=== PATIENT | male | born 1990 | race Caucasian/White ===

== ENCOUNTER 2018-03-19 15:27 | Emergency (ER) | payer OTHER ==
--- NOTE | 2018-03-19 15:56 | EDPHY ---
H & P Smoking Status: Former smoker Time Seen by Provider: 03/19/18 15:45 HPI/ROS: CHIEF COMPLAINT: Dog bite HISTORY OF PRESENT ILLNESS: 19-year-old male arrives via private vehicle complaining of multiple dog bites. States that he was [place] of the [facility] wound unknown dog ran up to him started biting him and his friend. Sustained puncture wounds to his left forearm, left thigh, right lateral calf. This was not reported to law enforcement. He self transported. His tetanus is out-of-date. He does not know the shirt cleaner of the dog, he is not know whether the dog had tags on or not, does not remember that address he was at. PHYSICAL EXAM (Prior to examination, patient consented to physical exam, hands were washed and my usual and customary physical exam procedures followed) 1) GENERAL: Well-developed, well-nourished, alert and oriented. Appears to be in no acute distress. 2) HEAD: Normocephalic 3) HEENT: sclera anicteric 4) LUNGS: Breathing comfortably. 5) MUSCULOSKELETAL: Left forearm: 3 puncture wounds to the left forearm, 2 on the dorsal aspect along the volar aspect. Neurovascular intact distally with no signs of infection. Soft compartments. No underlying osseous discomfort. Left thigh: Puncture wound x1 to the anterior her proximal aspect of the thigh with no involvement of the genitalia. Soft compartments. Neurovascularly intact distally with no signs of infection. DP PT pulses present and brisk distally. Right lateral calf puncture wound x1 with soft compartments neurovascularly intact distally with no signs of infection. DP PT pulses present and brisk distally. (Chriss Ybarra Nicole) Constitutional: Initial Vital Signs Temperature (C) 37.3 C 03/19/18 15:41 Heart Rate 102 H 03/19/18 15:41 Respiratory Rate 18 03/19/18 15:41 Blood Pressure 142/85 H 03/19/18 15:41 O2 Sat (%) 93 03/19/18 15:41 O2 Delivery Mode Room Air Allergies/Adverse Reactions: iodine Allergy (Mild, Verified 03/19/18 15:29) Rash Home Medications: Medication Instructions Recorded Amoxicillin/Clavulanate Pot 875 mg PO BID #14 tab 03/19/18 [Augmentin 875 mg tab] Wellbutrin Sr 03/19/18 MDM/Departure - MDM Medications Given: Discontinued Medications Amoxicillin/Clavulanate Potassium (Augmentin 875mg) 875 mg PO EDNOW ONE PRN Reason: Protocol Stop: 03/19/18 16:25 Last Admin: 03/19/18 16:35 Dose: 875 mg Diphtheria/Tetanus/Acell Pertussis (Boostrix) 0.5 ml IM .ONCE ONE Stop: 03/19/18 16:25 Last Admin: 03/19/18 16:34 Dose: 0.5 ml ED Course/Re-evaluation: Patient's wounds were anesthetized with 1% lidocaine with epinephrine prior to irrigation. There was then explored by myself. No foreign bodies visualized or palpated. Soft compartments. No signs of infection. Will initiate antibiotic prophylaxis with Augmentin. His tetanus has been updated. I had a lengthy discussion with the patient regarding her rabies post exposure prophylaxis. I expressed my concerns because the patient is unable to provide me an address that law enforcement can verify whether this incident occurred to check on vaccine status of the dog, he did not speak with the the dog shirt cleaner, and , per the patient, this was an unprovoked attack.Explained to the patient that if an address were obtained possibly the dog could be quarantined and observed, however he is unable to provide me with an address or even an approximation.. I therefore recommended rabies post exposure prophylaxis. He declines this noting the financial cost. We discussed possibly the hospital working on financial counseling and following up at [facility] to receive further vaccinations which would more likely be a reduced cost verses emergency department visit. I explained to the patient the fatality rate of rabies. I believe him to have decision-making capacity and capable of making decisions in his best interest. He continues to decline rabies post exposure prophylaxis. I saw this patient independently based on established practice protocols. Care of patient under supervision of secondary supervising physician Dr Esteves with whom I discussed case. (Chriss Ybarra) I did not see this patient while he was in the emergency department. However his care was discussed with the PA while the patient was in the department. I agree with treatment plan and management (Ruy Esteves) - Depart Disposition: Home, Routine, Self-Care Clinical Impression: Dog bite of left forearm, Dog bite of left thigh, Dog bite of right calf Condition: Good Instructions: Amoxicillin/Clavulanate Potassium (By mouth), Animal Bite (ED) Additional Instructions: Return to the ER if you develop redness, swelling, discharge, warmth to the wound, red streaks going up your arm or leg, or any other symptoms that concern you. It was recommended to you that you initiate rabies post exposure prophylaxis. You have declined this. I have explained you the fatality rate of rabies. If you change your mind and he would like to initiate rabies post exposure prophylaxis please return to the ER. Prescriptions: Amoxicillin/Clavulanate Pot [Augmentin 875 mg tab] 875 mg PO BID #14 tab Referrals: [facility],. [Clinic] - 2-3 days, call for appt.
[2018-03-19] MEDS ORDERED: AMOXICILLIN/CLAVULANATE POT 875/125 MG TAB PO ONE (16:24)
[2018-03-19] MEDS ORDERED: TDAP ADULT 0.5 ML INJ (BOOSTRIX) IM ONE (16:24)
[2018-03-19 16:45] VITALS: BP 145/87
== END 2018-03-19 16:44 | disposition home or self-care (01) ==
DX: S51.852A Open bite of left forearm, initial encounter (principal); S71.152A Open bite, left thigh, initial encounter; S81.851A Open bite, right lower leg, initial encounter; Z23 Encounter for immunization; Z87.891 Personal history of nicotine dependence; W54.0XXA Bitten by dog, initial encounter